=== PATIENT | male | born 1955 | race Caucasian/White ===

== ENCOUNTER 2016-12-25 16:27 | Emergency (ER) | payer OTHER ==
[2016-12-25 16:38] VITALS: BP 141/84
--- NOTE | 2016-12-25 17:47 | UC ---
Throat Pain/Nasal Curt HPI - HPI Summary HPI Summary: 61 year old male with sore throat. Intermittent ears "plugged", facial pressure , congestion, PND, "white patch in my throat", and cough for ten days. Symptoms started after [place] air travel. Patient has tried zyrtec, saline washes, and tylenol/advil with "slight" relief. [ End ] <Osito Gutierrez - Last Filed: 12/25/16 17:39> - HPI Summary HPI Summary: Pt reports that he has sinus pressure and tenderness. - History of Current Complaint Hx Obtained From: Patient Onset/Duration: Gradual Onset, Lasting Days - 10 Severity: Mild Cough: Nonproductive Associated Signs & Symptoms: Positive: Sinus Discomfort Related History: Seasonal Allergies - Epiglottits Risk Factors Epiglottis Risk Factors: Negative <Nia Emerson NP - Last Filed: 12/25/16 17:53> - History of Current Complaint Chief Complaint: UCRespiratory Stated Complaint: SINUS,SORE THROAT Time Seen by Provider: 12/25/16 17:38 - Allergies/Home Medications Allergies/Adverse Reactions: Allergies Allergy/AdvReac Type Severity Reaction Status Date / Time Penicillins Allergy Unknown Verified 12/25/16 16:36 Reaction Details Home Medications: Home Medications Latanoprost 0.005%* [Xalatan 0.005%*] 1 drop BOTH EYES QPM 12/25/16 [History Confirmed 12/25/16] PMH/Surg Hx/FS Hx/Imm Hx - Surgical History Surgical History: Yes Surgery Procedure, Year, and Place: vasectomy - Family History Known Family History: Positive: Cardiac Disease - Social History Alcohol Use: Daily Alcohol Amount: 2 drinks nightly- beer or bourbon Substance Use Type: None Smoking Status (MU): Former Smoker When Did the Patient Quit Smoking/Using Tobacco: 10-15 years ago - Immunization History Most Recent Influenza Vaccination: Not the 2017/2018 Season <Osito Gutierrez - Last Filed: 12/25/16 17:39> Previously Healthy: Yes - Social History Occupation: Employed Full-time Lives: With Family Have You Smoked in the Last Year: No <Nia Emerson NP - Last Filed: 12/25/16 17:53> Review of Systems Constitutional: Chills Skin: Negative Eyes: Negative ENT: Sore Throat, Sinus Congestion, Sinus Pain/Tenderness Respiratory: Cough Cardiovascular: Negative Gastrointestinal: Negative Genitourinary: Negative Motor: Negative Neurovascular: Negative Musculoskeletal: Negative Neurological: Negative Psychological: Negative Is Patient Immunocompromised?: No All Other Systems Reviewed And Are Negative: Yes <Nia Emerson NP - Last Filed: 12/25/16 17:53> Physical Exam Vital Signs: Initial Vital Signs Temp 98.5 F 12/25/16 16:32 Pulse 66 12/25/16 16:32 Resp 16 12/25/16 16:32 BP 141/84 12/25/16 16:32 Pulse Ox 100 12/25/16 16:32 <Osito Gutierrez - Last Filed: 12/25/16 17:39> Triage Information Reviewed: Yes Appearance: Well-Appearing Vital Signs: Initial Vital Signs Temp 98.5 F 12/25/16 16:32 Pulse 66 12/25/16 16:32 Resp 16 12/25/16 16:32 BP 141/84 12/25/16 16:32 Pulse Ox 100 12/25/16 16:32 Vital Signs Reviewed: Yes Eye Exam: Normal ENT Exam: Other ENT: Positive: Nasal congestion, Tonsillar exudate - right side, Other: - frontal sinus tenderness Dental Exam: Normal Neck exam: Normal Respiratory Exam: Normal Cardiovascular Exam: Normal Musculoskeletal Exam: Normal Neurological Exam: Normal Psychological Exam: Normal Skin Exam: Normal <Nia Emerson NP - Last Filed: 12/25/16 17:53> Throat Pain/Nasal Course/Dx - Differential Dx/Diagnosis Differential Diagnosis/HQI/PQRI: Influenza, Sinusitis, URI Provider Diagnoses: sinusitis <Nia Emerson NP - Last Filed: 12/25/16 17:53> Discharge <Osito Gutierrez - Last Filed: 12/25/16 17:39> <Nia Emerson NP - Last Filed: 12/25/16 17:53> - Discharge Plan Condition: Stable Disposition: HOME Prescriptions: Azithromycin TAB* [Zithromax TAB (Z-POLI) 250 mg #6 tabs] 2 tab PO .TODAY, THEN 1 DAILY #1 poli Patient Education Materials: Sinusitis (ED) Referrals: No Primary Care Phys,NOPCP [Primary Care Provider] - If Needed
== END 2016-12-25 17:56 | disposition home or self-care (01) ==
LOC: UCCORT 16:27
DX: J32.9 Chronic sinusitis, unspecified (principal); Z88.0 Allergy status to penicillin
CPT/HCPCS: 99212; G0463

== ENCOUNTER 2017-06-24 14:51 | Emergency (ER) | payer OTHER ==
[2017-06-24 15:50] VITALS: BP 153/82
--- NOTE | 2017-06-24 15:57 | UC ---
Throat Pain/Nasal Curt HPI - HPI Summary HPI Summary: Pt presents with sinus pain/pressure/congestion for the last 3 weeks. Has been taking mucinex and using flonase with no relief. Denies fever, chills, sore throat, cough, SOB, chest pain. - History of Current Complaint Chief Complaint: UCGeneralIllness Stated Complaint: SINUS COMPLAINT Time Seen by Provider: 06/24/17 15:56 Hx Obtained From: Patient Onset/Duration: Gradual Onset Severity: Moderate Pain Intensity: 5 Pain Scale Used: 0-10 Numeric - Allergies/Home Medications Allergies/Adverse Reactions: Allergies Allergy/AdvReac Type Severity Reaction Status Date / Time Penicillins Allergy Unknown Verified 06/24/17 15:46 Reaction Details Home Medications: Home Medications Azelastine 0.15% NASAL(NF) [Astepro 0.15% NASAL (NF)] 1 spray NASAL BID [History Confirmed 06/24/17] Cetirizine* [ZyrTEC 10 MG TAB*] 10 mg PO DAILY 06/24/17 [History Confirmed 06/24] Fluticasone NASAL SPRAY 50MCG* [Flonase NASAL SPRAY 50MCG*] 2 spray BOTH NARES DAILY 06/24/17 [History Confirmed 06/24/17] PMH/Surg Hx/FS Hx/Imm Hx - Additional Past Medical History Additional PMH: None Previously Healthy: Yes - Surgical History Surgical History: Yes Surgery Procedure, Year, and Place: vasectomy - Family History Known Family History: Positive: Cardiac Disease - Social History Occupation: Employed Full-time Lives: With Family Alcohol Use: Daily Alcohol Amount: 2 drinks nightly- beer or bourbon Substance Use Type: None Smoking Status (MU): Former Smoker Have You Smoked in the Last Year: No When Did the Patient Quit Smoking/Using Tobacco: 10-15 years ago - Immunization History Most Recent Influenza Vaccination: Not the 2017/2018 Season Review of Systems Constitutional: Negative Skin: Negative Eyes: Negative ENT: Nasal Discharge, Sinus Congestion, Sinus Pain/Tenderness Respiratory: Negative Cardiovascular: Negative Musculoskeletal: Negative Neurological: Negative Psychological: Negative All Other Systems Reviewed And Are Negative: Yes Physical Exam - Summary Physical Exam Summary: GENERAL: NAD. WDWN HEENT: NC/AT. Conjunctiva clear without inflammation or discharge. TMs intact , no bulging, erythema, or edema. Nasal mucosa mildly swollen and erythematous with yellow/clear discharge. TTP maxillary and frontal sinus. Posterior oropharynx without exudates, erythema, or tonsillar enlargement. Uvula midline. NECK: Supple without lymphadenopathy CHEST: CTAB. No r/r/w. No accessory muscle use. Breathing comfortably and in no distress. CV: RRR. Without m/r/g. Pulses intact. SKIN: No rash or erythema noted. NEURO: Alert. CN II-XII grossly intact. PSYCH: Age appropriate behavior. Triage Information Reviewed: Yes Vital Signs: Initial Vital Signs Temp 98.5 F 06/24/17 15:43 Pulse 63 06/24/17 15:43 Resp 15 06/24/17 15:43 BP 153/82 06/24/17 15:43 Pulse Ox 98 06/24/17 15:43 Throat Pain/Nasal Course/Dx - Course Course Of Treatment: Sinusitis - pt said that zpak has helped him in the past. Will rx for this again today. - Differential Dx/Diagnosis Provider Diagnoses: Sinusitis Discharge - Sign-Out/Discharge Documenting (check all that apply): Discharge/Admit/Transfer - Discharge Plan Condition: Stable Disposition: HOME Prescriptions: Azithromycin TAB* [Zithromax TAB (Z-POLI) 250 mg #6 tabs] 2 tab PO .TODAY, THEN 1 DAILY #1 poli Patient Education Materials: Sinusitis (ED) Referrals: No Primary Care Phys,NOPCP [Primary Care Provider] - Additional Instructions: If you develop a fever, shortness of breath, chest pain, new or worsening symptoms - please call your PCP or go to the ED. Your blood pressure was high at todays visit. Please see your primary provider within 4 weeks for recheck and re-evaluation. - Billing Disposition and Condition Condition: STABLE Disposition: HOME
== END 2017-06-24 16:06 | disposition home or self-care (01) ==
LOC: UCCORT 14:51
DX: J32.9 Chronic sinusitis, unspecified (principal); Z87.891 Personal history of nicotine dependence; Z88.0 Allergy status to penicillin
CPT/HCPCS: 99212; G0463

== ENCOUNTER 2017-09-02 10:55 | Emergency (ER) | payer OTHER ==
[2017-09-02] MEDS ORDERED: Ibuprofen TAB* 400 MG PO ONE (12:25)
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
[2017-09-02] MEDS ORDERED: Tetan/Diph/Pertus SYR(Tdap)* 0.5 ML SYR(BOOSTRIX) use SYR IM ONE (12:26)
--- NOTE | 2017-09-02 13:01 | RAD ---
INDICATION: Sternal injury COMPARISON: None TECHNIQUE: AP and oblique were obtained. FINDINGS: There are mild irregularities of the manubrium. If there is point tenderness at the level of the manubrium, consider a nondisplaced fracture. The remainder of the sternum is normal. IMPRESSION: MILD IRREGULARITIES OF THE MANUBRIUM (SEE ABOVE)
[2017-09-02 13:56] VITALS: BP 125/76
== END 2017-09-02 13:56 | disposition home or self-care (01) ==
LOC: UCCORT 10:55
DX: S29.9XXA Unspecified injury of thorax, initial encounter (principal); V29.9XXA Motorcycle rider (driver) (passenger) injured in unspecified traffic accident, initial encounter; Y93.55 Activity, bike riding; Y92.9 Unspecified place or not applicable; Z88.0 Allergy status to penicillin; Z87.891 Personal history of nicotine dependence
CPT/HCPCS: 71120; 81003; 90471; 90715; 96372; 99212; A9270-GY; G0463